=== PATIENT | female | born 1975 | race Caucasian/White ===

== ENCOUNTER 2017-08-14 14:05 | Emergency (ER) | payer MEDICAID ==
[2017-08-14] MEDS ORDERED: Lactated Ringers 1,000 ML IV ONE (15:44)
[2017-08-14] MEDS ORDERED: Metoclopramide 10 MG/2 ML SDV IVPUSH ONE (15:45)
--- NOTE | 2017-08-14 15:52 | EDM.PDOC ---
ED HPI GENERAL MEDICAL PROBLEM - General Chief Complaint: Gastrointestinal Problem Stated Complaint: FEVER; STOMACH ACHE Time Seen by Provider: 08/14/17 15:35 Source of Information: Reports: Patient, RN History Limitations: Reports: Other (all her prior visits were in [place], those records are not available today.) - History of Present Illness INITIAL COMMENTS - FREE TEXT/NARRATIVE: 41 yo female had a hemorrhoidectomy a couple weeks ago. Since then she has been having lower abdominal pain with vomiting. Has been to urgent care and the ER in [place] and no testing has been done. She was given some IM Zofran with transient relief of her nausea. Nothing else has helped. Has not seen her doctor due to not having a ride during weekdays. Says she's running fevers intermittently. Stools the past 3 days have been darker than normal. No constipation or diarrhea. No urinary sx's. Has a hx of colonoscopy with both polyps and diverticuli reported. Gets no relief with passage of stool. Onset: Other (Over a week ago.) Duration: Day(s):, Constant, Waxing/Waning Location: Reports: Abdomen Quality: Reports: Ache Severity: Moderate Improves with: Reports: Other (lying) Worsens with: Reports: Other (standing) Context: Reports: Other (Sx's since recent hemorrhoidectomy) Associated Symptoms: Reports: Fever/Chills, Loss of Appetite, Nausea/Vomiting, Weakness. Denies: Rash Treatments ACCOUNTS SPECIALIST: Reports: Other (see below) (oral Zofran without relief. ) - Related Data Allergies Allergy/AdvReac Type Severity Reaction Status Date / Time duloxetine [From Cymbalta] Allergy Vomiting Verified 08/14/17 14:38 gabapentin Allergy Vomiting Verified 08/14/17 14:38 Home Meds: Home Meds Acetaminophen with Codeine [Acetaminophen-Cod #3] 1 tab PO BEDTIME 08/14/17 [ History] Divalproex Sodium [Divalproex Sodium] 1 tab PO BEDTIME 08/14/17 [History] Haloperidol [Haldol] 1 tab PO BID PRN 08/14/17 [History] [place] Carbonate [Lithobid] 3 tab PO BEDTIME 08/14/17 [History] Nitrofurantoin Monohyd/M-Cryst [Macrobid 100 mg Capsule] 100 mg PO Q12H #10 capsule 08/14/17 [Rx] Ondansetron [Zofran ODT] 4 mg PO Q6H PRN #7 tab.dis 08/14/17 [Rx] hydrOXYzine HCl [hydrOXYzine] 1 tab PO TID 08/14/17 [History] traZODone HCl [Trazodone HCl] 2 tab PO BEDTIME 08/14/17 [History] Past Medical History Musculoskeletal History: Reports: Other (See Below) Other Musculoskeletal History: foot surg Neurological History: Reports: Other (See Below) Other Neuro History: brain tumor Oncologic (Cancer) History: Reports: Brain - Past Surgical History GI Surgical History: Reports: Appendectomy, Cholecystectomy Female Surgical History: Reports: Hysterectomy Social & Family History - Tobacco Use Smoking Status *Q: Current Every Day Smoker Years of Tobacco use: 20 Packs/Tins Daily: 0.1 ED ROS GENERAL - Review of Systems Review Of Systems: See Below Constitutional: Reports: Fever, Decreased Appetite HEENT: Reports: No Symptoms Respiratory: Reports: No Symptoms Cardiovascular: Reports: Lightheadedness Endocrine: Reports: No Symptoms GI/Abdominal: Reports: Abdominal Pain, Black Stool, Decreased Appetite, Nausea, Vomiting. Denies: Bloody Stool, Constipation, Diarrhea, Distension, Hematemesis , Hematochezia : Reports: No Symptoms Musculoskeletal: Reports: No Symptoms Skin: Reports: No Symptoms Neurological: Reports: No Symptoms ED EXAM, GI/ABD - Physical Exam Exam: See Below Exam Limited By: No Limitations General Appearance: Alert, WD/WN, No Apparent Distress, Obese Eyes: Bilateral: Normal Appearance Ears: Normal External Exam, Normal Canal, Hearing Grossly Normal Nose: Normal Inspection, Normal Mucosa, No Blood Throat/Mouth: Normal Inspection, Normal Lips, Normal Oropharynx, Normal Voice, No Airway Compromise Head: Atraumatic, Normocephalic Neck: Normal Inspection, Supple, Non-Tender Respiratory/Chest: No Respiratory Distress, Lungs Clear, No Accessory Muscle Use Cardiovascular: Regular Rate, Rhythm, No Edema GI/Abdominal Exam: Normal Bowel Sounds, Soft, No Distention, Tender (lower half of abdomen). No: Distended, Guarding, Rigid, Rebound Back Exam: Normal Inspection. No: CVA Tenderness (R), CVA Tenderness (L) Extremities: Normal Inspection, Normal Range of Motion, Non-Tender, No Pedal Edema Neurological: Alert, Oriented, CN II-XII Intact, Normal Cognition, No Motor/ Sensory Deficits Psychiatric: Normal Affect, Normal Mood Skin Exam: Warm, Dry, Intact, Normal Color, No Rash Course - Vital Signs Last Recorded V/S: Last Vital Signs Temp 36.1 C 08/14/17 15:00 Pulse 74 08/14/17 15:00 Resp 14 08/14/17 15:00 BP 120/79 08/14/17 15:00 Pulse Ox 98 08/14/17 15:00 - Orders/Labs/Meds Orders: Active Orders 24 hr Category Date Time Status Abdomen 1V Flat [CR] Stat Exams 08/14/17 15:46 Taken CULTURE URINE [RM] Stat Lab 08/14/17 16:42 Ordered Labs: Laboratory Tests 08/14/17 08/14/17 08/14/17 Range/Units 15:56 15:58 15:58 WBC 8.5 (4.5-11.0) K/uL RBC 4.35 (3.30-5.50) M/uL Hgb 13.5 (12.0-15.0) g/dL Hct 40.0 (36.0-48.0) % MCV 92 (80-98) fL MCH 31 (27-31) pg MCHC 34 (32-36) % Plt Count 330 (150-400) K/uL Sodium 143 (140-148) mmol/L Potassium 4.8 (3.6-5.2) mmol/L Chloride 108 (100-108) mmol/L Carbon Dioxide 27 (21-32) mmol/L Anion Gap 8.2 (5.0-14.0) mmol/L BUN 9 (7-18) mg/dL Creatinine 0.8 (0.6-1.0) mg/dL Est Cr Clr Drug Dosing 81.59 mL/min Estimated GFR (MDRD) > 60 (>60) Glucose 106 (74-106) mg/dL Calcium 9.3 (8.5-10.1) mg/dL C-Reactive Protein (0.0-0.3) mg/dL Urine Color Yellow Urine Appearance Cloudy Urine pH 6.0 (4.5-8.0) Ur Specific [place] 1.015 (1.008-1.030) Urine Protein Negative (NEGATIVE) mg/dL Urine Glucose (UA) Normal (NEGATIVE) mg/dL Urine Ketones Negative (NEGATIVE) mg/dL Urine Occult Blood Moderate (NEGATIVE) Urine Nitrite Negative (NEGATIVE) Urine Bilirubin Negative (NEGATIVE) Urine Urobilinogen Normal (NORMAL) mg/dL Ur Leukocyte Esterase Negative (NEGATIVE) Urine RBC 0-5 (0-5) Urine WBC 10-20 H (0-5) Ur Epithelial Cells Moderate Amorphous Sediment Moderate Urine Bacteria Not seen Urine Mucus Not seen 08/14/17 Range/Units 15:58 WBC (4.5-11.0) K/uL RBC (3.30-5.50) M/uL Hgb (12.0-15.0) g/dL Hct (36.0-48.0) % MCV (80-98) fL MCH (27-31) pg MCHC (32-36) % Plt Count (150-400) K/uL Sodium (140-148) mmol/L Potassium (3.6-5.2) mmol/L Chloride (100-108) mmol/L Carbon Dioxide (21-32) mmol/L Anion Gap (5.0-14.0) mmol/L BUN (7-18) mg/dL Creatinine (0.6-1.0) mg/dL Est Cr Clr Drug Dosing mL/min Estimated GFR (MDRD) (>60) Glucose (74-106) mg/dL Calcium (8.5-10.1) mg/dL C-Reactive Protein 0.36 H (0.0-0.3) mg/dL Urine Color Urine Appearance Urine pH (4.5-8.0) Ur Specific [place] (1.008-1.030) Urine Protein (NEGATIVE) mg/dL Urine Glucose (UA) (NEGATIVE) mg/dL Urine Ketones (NEGATIVE) mg/dL Urine Occult Blood (NEGATIVE) Urine Nitrite (NEGATIVE) Urine Bilirubin (NEGATIVE) Urine Urobilinogen (NORMAL) mg/dL Ur Leukocyte Esterase (NEGATIVE) Urine RBC (0-5) Urine WBC (0-5) Ur Epithelial Cells Amorphous Sediment Urine Bacteria Urine Mucus Meds: Medications Discontinued Medications Generic Name Dose Route Start Last Admin Trade Name Freq PRN Reason Stop Dose Admin Acetaminophen 1,000 mg 08/14/17 16:27 08/14/17 16:41 Tylenol Extra Strength PO 08/14/17 16:28 1,000 mg ONETIME ONE Administration Lactated Ringer's 1,000 mls @ 1,000 mls/hr 08/14/17 15:44 08/14/17 16:41 Ringers, Lactated IV 08/14/17 16:43 1,000 mls/hr BOLUS ONE Administration Metoclopramide HCl 10 mg 08/14/17 15:45 08/14/17 16:39 Reglan IVPUSH 08/14/17 15:46 10 mg ONETIME ONE Administration Nitrofurantoin Macrocrystals 100 mg 08/14/17 16:22 08/14/17 16:39 Macrobid PO 08/14/17 16:23 100 mg ONETIME ONE Administration - Radiology Interpretation Free Text/Narrative:: Abdominal [id number], no excess stool seen. Departure - Departure Time of Disposition: 17:10 Disposition: Home, Self-Care 01 Condition: Fair Clinical Impression: Cystitis Nausea and vomiting Qualifiers: Vomiting type: unspecified Vomiting Intractability: non-intractable Qualified Code(s): R11.2 - Nausea with vomiting, unspecified - Discharge Information Prescriptions: Nitrofurantoin Monohyd/M-Cryst [Macrobid 100 mg Capsule] 100 mg PO Q12H #10 capsule Referrals: Tera Babcock MD [Primary Care Provider] - Forms: ED Department Discharge - My Orders Last 24 Hours: My Active Orders 08/14/17 15:46 Abdomen 1V Flat [CR] Stat 08/14/17 16:42 CULTURE URINE [RM] Stat - Assessment/Plan Last 24 Hours: My Active Orders 08/14/17 15:46 Abdomen 1V Flat [CR] Stat 08/14/17 16:42 CULTURE URINE [RM] Stat
[2017-08-14] MEDS ORDERED: Nitrofurantoin Monohydrate/Macrocrystalline 100 MG Cap PO ONE (16:22)
[2017-08-14] MEDS ORDERED: Acetaminophen 500 MG Tab PO ONE (16:27)
--- NOTE | 2017-08-16 09:13 | CR ---
Abdomen 1V Flat HISTORY: Abdominal pain COMPARISON: None FINDINGS: Bowel gas pattern is nonobstructive. Degenerative change with bony fusion on the right of t he L2-L3 vertebral bodies across the transverse processes. Correlate if patient has had prior back in jury. Surgical clips from prior cholecystectomy. No evidence for acute abdominal process.
== END 2017-08-14 17:38 | disposition home or self-care (01) ==
LOC: JP.ED 14:05
DX: N30.90 Cystitis, unspecified without hematuria (principal); F17.210 Nicotine dependence, cigarettes, uncomplicated; Z88.8 Allergy status to other drugs, medicaments and biological substances
CPT/HCPCS: 36415; 74018; 80048; 81001; 82272; 85027; 86140; 87086; 96361; 96374; 99284; A9270; J2765; J7120; 99283